=== PATIENT | male | born 1950 | race Hispanic/Latino ===

== ENCOUNTER 2019-11-27 19:17 | Inpatient (IN) | payer OTHER ==
[~2019-11-27] VITALS: Ht 182.9 cm; Wt 86.1 kg
[2019-11-27] MEDS: SODIUM CHLORIDE 0.9% 1000ML 1,000 ML IV SCH (05:22)
[2019-11-27] MEDS ORDERED: ACETAMINOPHEN 325 MG TAB ONE (19:30)
[2019-11-27 19:58] LABS: APPEARANCE,URINE Clear (CLEAR); BILIRUBIN,URINE Negative (NEGATIVE); COLOR,URINE Dark Yellow (YELLOW); GLUCOSE, URINE (UA) Negative (NEGATIVE); KETONES,URINE Trace mg/dL (NEGATIVE); LEUKOCYTE ESTERASE ,URINE Negative (NEGATIVE); NITRATE,URINE Negative (NEGATIVE); OCCULT BLOOD,URINE Nonhemolyzed Trace (NEGATIVE); PROTEIN,URINE Trace mg/dL (NEGATIVE)
[2019-11-27 20:11] LABS: BASOPHILS % (AUTO) 0.2 % (0.0-5.0); HEMATOCRIT 33.2 % (42-54); LYMPHOCYTES % (AUTO) 5.1 % (21.0-51.0); MEAN CORPUSCULAR HEMOGLOBIN 25.9 pg (27.0-33.0); MEAN CORPUSCULAR HGB CONC 31.9 g/dL (32.0-36.0); MONOCYTES % (AUTO) 6.1 % (3.0-13.0); NEUTROPHILS % (AUTO) 88.1 % (40.0-77.0); PLATELET COUNT (AUTO) 365 K/uL (130-400); RED CELL DISTRIBUTION WIDTH 13.7 % (11.0-15.5)
[2019-11-27 20:27] LABS: CREATININE 1.1 mg/dL (0.5-1.5); POTASSIUM 4.2 mmol/L (3.5-5.1)
[2019-11-27 20:33] LABS: BILIRUBIN,TOTAL 1.1 mg/dL (0.2-1.0); TOTAL PROTEIN, SERUM 7.1 g/dL (6.0-8.3)
[2019-11-27] MEDS ORDERED: IOHEXOL-350 75 ML VIAL IV ONE (21:23)
[2019-11-27 21:25] LABS: BACTERIA,URINE Rare /HPF (None Seen); RBC,URINE 0-1 /HPF (0-1); SQUAMOUS EPITHELIAL CELL,UR None Seen /HPF (0-2); WBC,URINE 0-1 /HPF (0-1)
[2019-11-27] MEDS ORDERED: ZOSYN 3.375GM+NS 50ML 50 ML IV ONE (22:41)
[2019-11-27] MEDS ORDERED: VANCOMYCIN 1GM+NS 250ML 250 ML IV ONE (22:41)
[2019-11-27] MEDS ORDERED: ONDANSETRON HCL 4 MG/2 ML VIAL IV PRN (23:30)
[2019-11-27] MEDS ORDERED: VANCOMYCIN PROTOCOL PER PHARMACY IV SCH (23:30)
[2019-11-27] MEDS ORDERED: ACETAMINOPHEN 325 MG TAB PO PRN ×2 (23:30)
[2019-11-27] MEDS ORDERED: MORPHINE SULFATE 2 MG/ML 1ML SYG IV PRN (23:30)
[2019-11-27] MEDS ORDERED: LACTULOSE 20 GM/30 ML UDCUP PO PRN (23:30)
--- NOTE | 2019-11-28 00:30 | NUR ---
ADMISSION PT ADMITTED FROM ER INTO ROOM 302. AWAKE, ALERT AND VERBALLY RESPONSIVE. NO C/O PAIN OR DISCOMFORT AT THIS TIME. LOYA CATHETER OBSERVED DRAINING YELLOW URINE. PT ORIENTED TO ROOM, HIMANSHU TALBERT WITHIN REACH, BED IN LOWEST POSITION. Addendum: 11/28/19 at 0124 by ALVA MUSA RN Amended: Links added.
[2019-11-28 00:35] VITALS: BP 140/73
[2019-11-28 04:08] VITALS: BP 133/73
[2019-11-28 05:09] LABS: BASOPHILS % (AUTO) 0.3 % (0.0-5.0); EOSINOPHILS % (AUTO) 0.3 % (0.0-8.0); HEMATOCRIT 31.4 % (42-54); LYMPHOCYTES % (AUTO) 11.1 % (21.0-51.0); MEAN CORPUSCULAR HEMOGLOBIN 26.2 pg (27.0-33.0); MEAN CORPUSCULAR HGB CONC 31.8 g/dL (32.0-36.0); MEAN CORPUSCULAR VOLUME 82.2 fL (79-99); MONOCYTES % (AUTO) 6.5 % (3.0-13.0); NEUTROPHILS % (AUTO) 81.3 % (40.0-77.0); PLATELET COUNT (AUTO) 321 K/uL (130-400); RED BLOOD CELL COUNT(AUTO) 3.82 MIL/uL (4.50-6.20); RED CELL DISTRIBUTION WIDTH 13.9 % (11.0-15.5); WHITE BLOOD COUNT (AUTO) 15.3 K/uL (4.8-10.8)
[2019-11-28 05:25] LABS: CREATININE 0.9 mg/dL (0.5-1.5); POTASSIUM 3.9 mmol/L (3.5-5.1)
[2019-11-28] MEDS: ZOSYN 3.375GM+NS 50ML 50 ML IV SCH ×3 (06:37→21:45)
[2019-11-28 07:30] VITALS: BP 129/70
[2019-11-28 09:24] LABS: ALBUMIN 2.5 g/dL (3.5-5.0); BILIRUBIN,DIRECT 0.6 mg/dL (0.0-0.3); BILIRUBIN,TOTAL 1.4 mg/dL (0.2-1.0)
[2019-11-28] MEDS: SODIUM CHLORIDE 0.9% 1000ML 1,000 ML IV SCH ×2 (10:35→19:41)
[2019-11-28] MEDS: ENOXAPARIN SODIUM 40 MG/0.4 ML SYRINGE SQ SCH (10:35)
[2019-11-28] MEDS: FAMOTIDINE/PF 20 MG/2 ML VIAL IV SCH ×2 (10:35→21:42)
[2019-11-28 10:53] LABS: TOTAL PROTEIN, SERUM 6.1 g/dL (6.0-8.3)
[2019-11-28 11:00] VITALS: BP 136/70
[2019-11-28] MEDS ORDERED: COMPOUND IV REFRIGERATED 1 EACH IVSOLN MISC PRN (11:45)
[2019-11-28] MEDS: VANCOMYCIN 1.25 GM in SODIUM CHLORIDE 0.9% 250 ML IV SCH ×2 (12:13→23:14)
[2019-11-28 16:00] VITALS: BP 132/64
--- NOTE | 2019-11-28 16:43 | NUR ---
CM NOTE/IA MEET WITH PATIENT IN ROOM. PER PATIENT, IS INDEPENDENT WITH ADLS, LIVES WITH SPOUSE, NO DME IN USE, NO PROVIDER OR HOME HEALTH AND FEELS SAFE TO RETURN HOME ONCE DISCHARGED FROM HOSPITAL. Addendum: 11/28/19 at 1644 by MATEUSZ ZHAO RN CM Amended: Links added.
[2019-11-28 20:12] VITALS: BP 135/65
[2019-11-29] VITALS (8 sets, daily range): BP systolic 116–157; BP diastolic 62–82
[2019-11-29] MEDS: SODIUM CHLORIDE 0.9% 1000ML 1,000 ML IV SCH ×2 (04:34→20:17)
[2019-11-29] MEDS: ZOSYN 3.375GM+NS 50ML 50 ML IV SCH ×3 (05:16→23:03)
[2019-11-29 05:52] LABS: BASOPHILS % (AUTO) 0.7 % (0.0-5.0); EOSINOPHILS % (AUTO) 2.2 % (0.0-8.0); HEMATOCRIT 31.1 % (42-54); LYMPHOCYTES % (AUTO) 13.7 % (21.0-51.0); MEAN CORPUSCULAR HEMOGLOBIN 26.3 pg (27.0-33.0); MEAN CORPUSCULAR HGB CONC 29.9 g/dL (32.0-36.0); MEAN CORPUSCULAR VOLUME 87.9 fL (79-99); MONOCYTES % (AUTO) 7.5 % (3.0-13.0); NEUTROPHILS % (AUTO) 75.5 % (40.0-77.0); PLATELET COUNT (AUTO) 280 K/uL (130-400); RED BLOOD CELL COUNT(AUTO) 3.54 MIL/uL (4.50-6.20); WHITE BLOOD COUNT (AUTO) 10.3 K/uL (4.8-10.8)
[2019-11-29 06:00] LABS: INR 1.19 (0.85-1.15); PARTIAL THROMBOPLASTIN TIME 24.8 SEC (26.3-35.5); PROTHROMBIN TIME 12.8 SEC (9.6-11.6)
[2019-11-29 06:05] LABS: CREATININE 1.2 mg/dL (0.5-1.5); POTASSIUM 3.3 mmol/L (3.5-5.1)
[2019-11-29] MEDS: POTASSIUM CHLORIDE 20MEQ/100ML 100 ML IV PRN (08:10)
[2019-11-29] MEDS: LIDOCAINE HCL-MPF 1% 2ML VIAL IV PRN (08:10)
[2019-11-29] MEDS: ENOXAPARIN SODIUM 40 MG/0.4 ML SYRINGE SQ SCH (09:00)
[2019-11-29] MEDS: FAMOTIDINE/PF 20 MG/2 ML VIAL IV SCH ×2 (09:39→20:16)
--- NOTE | 2019-11-29 11:00 | NUR ---
discussed case with primary RN discussed case with primary RN Jj, for poss IR drain today CHART REVIEWED, WILL ANTICIPATE MAY NEED HH OR AFTERCARE FOLLOW UP FOR IV ABX OR HH Addendum: 11/29/19 at 1112 by LEATHA CAMPBELL RN CM Amended: Links added.
--- NOTE | 2019-11-29 12:59 | NUR ---
U/S GD DRAINAGE CATHETER PLACEMENT PROCEDURE PERFORMED BY DR Xiao RODRÍGUEZ. PUNCTURE SITE LUQ BY STAPLE LINE. PATIENT TOLERATED PROCEDURE WELL. 8FR PIGTAIL CATHETER PLACED TO ABD WALL FLUID COLLECTION AND CONNECTED TO DRAINAGE BAG. CATHETER SUTURED IN PLACE AND SECURED WITH STAY-FIX DRESSING. SPECIMEN COLLECTED AND SENT TO LAB. END OF PROCEDURE AT 1245. REPORT GIVEN TO Brandon DUTTON RN AND PATIENT TRANSPORTED TO CT SCAN FOR ABD STUDY AND THEN TO [facility]-. AAO X3 WITH NO C/O PAIN.
[2019-11-29] MEDS: VANCOMYCIN 1.25 GM in SODIUM CHLORIDE 0.9% 250 ML IV SCH (13:53)
--- NOTE | 2019-11-29 14:17 | NUR ---
LOVENOX HELD DUE TO INVASIVE PROCEDURE.
[2019-11-29] MEDS: TAMSULOSIN HCL 0.4 MG CAP.ER.24H PO SCH (20:16)
[2019-11-30] MEDS: VANCOMYCIN 1.25 GM in SODIUM CHLORIDE 0.9% 250 ML IV SCH ×3 (00:37→23:51)
[2019-11-30] MEDS: SODIUM CHLORIDE 0.9% 1000ML 1,000 ML IV SCH (01:21)
[2019-11-30 03:57] VITALS: BP 144/74
--- NOTE | 2019-11-30 05:35 | NUR ---
LOYA D/C LOYA WAS DISCONTINUED AT THIS TIME, URINE OUTPUT WAS 1900ML, DUE TO VOID BY 1335.
[2019-11-30 05:59] LABS: BASOPHILS % (AUTO) 0.6 % (0.0-5.0); EOSINOPHILS % (AUTO) 4.2 % (0.0-8.0); HEMATOCRIT 30.1 % (42-54); MEAN CORPUSCULAR HEMOGLOBIN 25.4 pg (27.0-33.0); MEAN CORPUSCULAR HGB CONC 31.2 g/dL (32.0-36.0); MEAN CORPUSCULAR VOLUME 81.4 fL (79-99); MONOCYTES % (AUTO) 8.2 % (3.0-13.0); NEUTROPHILS % (AUTO) 65.4 % (40.0-77.0); PLATELET COUNT (AUTO) 301 K/uL (130-400); RED CELL DISTRIBUTION WIDTH 13.7 % (11.0-15.5)
[2019-11-30] MEDS: ZOSYN 3.375GM+NS 50ML 50 ML IV SCH ×3 (06:03→23:50)
[2019-11-30 06:11] LABS: CREATININE 1.2 mg/dL (0.5-1.5)
--- NOTE | 2019-11-30 06:20 | NUR ---
FIRST VOID PATIENT S/P LOYA REMOVAL. PATIENT VOIDED AT THIS TIME.
[2019-11-30 07:56] VITALS: BP 109/63
[2019-11-30] MEDS: TAMSULOSIN HCL 0.4 MG CAP.ER.24H PO SCH (09:10)
[2019-11-30] MEDS: FAMOTIDINE/PF 20 MG/2 ML VIAL IV SCH ×2 (09:13→20:31)
[2019-11-30] MEDS: ENOXAPARIN SODIUM 40 MG/0.4 ML SYRINGE SQ SCH (09:13)
[2019-11-30 11:37] VITALS: BP 110/68
--- NOTE | 2019-11-30 13:22 | NUR ---
DR. Juarez AT BEDSIDE,, PLAN OF CARE DISCUSSED WITH PATIENT. WIATING ON CULTURES- ANTICIPATE AIU OR PO MEDS AND HOME. Addendum: 11/30/19 at 1324 by LEATHA CAMPBELL RN CM Amended: Links added.
[2019-11-30 16:00] VITALS: BP 111/64
[2019-11-30 20:00] VITALS: BP 129/68
[2019-11-30 23:42] VITALS: BP 133/79
[2019-11-30] MEDS ORDERED: SODIUM CHLORIDE 0.9% 250 ML IV ONE (23:53)
[2019-12-01 03:47] VITALS: BP 146/74
[2019-12-01 05:27] LABS: BASOPHILS % (AUTO) 0.7 % (0.0-5.0); EOSINOPHILS % (AUTO) 4.2 % (0.0-8.0); HEMATOCRIT 30.6 % (42-54); LYMPHOCYTES % (AUTO) 17.9 % (21.0-51.0); MEAN CORPUSCULAR HEMOGLOBIN 25.4 pg (27.0-33.0); MEAN CORPUSCULAR HGB CONC 31.4 g/dL (32.0-36.0); MONOCYTES % (AUTO) 9.5 % (3.0-13.0); PLATELET COUNT (AUTO) 312 K/uL (130-400); RED BLOOD CELL COUNT(AUTO) 3.78 MIL/uL (4.50-6.20); RED CELL DISTRIBUTION WIDTH 13.8 % (11.0-15.5); WHITE BLOOD COUNT (AUTO) 8.4 K/uL (4.8-10.8)
[2019-12-01 05:45] LABS: POTASSIUM 3.4 mmol/L (3.5-5.1)
[2019-12-01] MEDS: ZOSYN 3.375GM+NS 50ML 50 ML IV SCH ×3 (06:20→22:27)
[2019-12-01] MEDS: FAMOTIDINE/PF 20 MG/2 ML VIAL IV SCH ×2 (08:53→20:18)
[2019-12-01] MEDS: TAMSULOSIN HCL 0.4 MG CAP.ER.24H PO SCH (08:54)
[2019-12-01] MEDS: ENOXAPARIN SODIUM 40 MG/0.4 ML SYRINGE SQ SCH (08:55)
[2019-12-01 09:11] VITALS: BP 151/69
[2019-12-01] MEDS: POTASSIUM CHLORIDE 20MEQ/100ML 100 ML IV PRN (09:52)
[2019-12-01] MEDS: LIDOCAINE HCL-MPF 1% 2ML VIAL IV PRN (09:55)
[2019-12-01] MEDS: VANCOMYCIN 1.25 GM in SODIUM CHLORIDE 0.9% 250 ML IV SCH (11:00)
[2019-12-01 11:46] VITALS: BP 123/68
--- NOTE | 2019-12-01 14:30 | NUR ---
IR SPOKE WITH ALLAN IR WILL REMOVE LT. ACCORDION FROM LLQ IF IT'S LESS THEN 10CC, PLEASE TAKE INTO CONSIDERATION THE 10CC NS WHEN MEASURING.
--- NOTE | 2019-12-01 14:35 | NUR ---
LT ACCORDION FLUSHED ACCORDION WITH 10CC NS.
[2019-12-01 20:00] VITALS: BP 124/61
[2019-12-01 23:49] VITALS: BP 144/79
[2019-12-02 04:00] VITALS: BP 143/69
[2019-12-02 05:30] LABS: BASOPHILS % (AUTO) 0.5 % (0.0-5.0); EOSINOPHILS % (AUTO) 4.7 % (0.0-8.0); HEMATOCRIT 30.7 % (42-54); LYMPHOCYTES % (AUTO) 21.3 % (21.0-51.0); MEAN CORPUSCULAR HEMOGLOBIN 25.8 pg (27.0-33.0); MEAN CORPUSCULAR HGB CONC 31.3 g/dL (32.0-36.0); MEAN CORPUSCULAR VOLUME 82.5 fL (79-99); MONOCYTES % (AUTO) 9.9 % (3.0-13.0); NEUTROPHILS % (AUTO) 63.1 % (40.0-77.0); PLATELET COUNT (AUTO) 314 K/uL (130-400); RED BLOOD CELL COUNT(AUTO) 3.72 MIL/uL (4.50-6.20); RED CELL DISTRIBUTION WIDTH 14.1 % (11.0-15.5); WHITE BLOOD COUNT (AUTO) 7.3 K/uL (4.8-10.8)
[2019-12-02] MEDS: ZOSYN 3.375GM+NS 50ML 50 ML IV SCH ×2 (05:38→13:38)
[2019-12-02 05:50] LABS: CREATININE 2.1 mg/dL (0.5-1.5); POTASSIUM 3.6 mmol/L (3.5-5.1)
[2019-12-02 08:00] VITALS: BP 150/81
--- NOTE | 2019-12-02 08:35 | NUR ---
PROCEDURE PATIENT SCHEDULED FOR DRAINAGE CATHETER REMOVAL. NO OUTPUT OVER NIGHT AND OK'D FOR REMOVAL. CATHETER REMOVED AT BEDSIDE WITH STERILE TECHNIQUE. PATIENT TOLERATED PROCEDURE WELL. REPORT GIVEN TO Karla FERRERA RN.
[2019-12-02] MEDS: FAMOTIDINE/PF 20 MG/2 ML VIAL IV SCH (11:14)
[2019-12-02] MEDS: TAMSULOSIN HCL 0.4 MG CAP.ER.24H PO SCH (11:14)
[2019-12-02] MEDS: ENOXAPARIN SODIUM 40 MG/0.4 ML SYRINGE SQ SCH (11:14)
[2019-12-02 12:00] VITALS: BP 133/67
== END 2019-12-02 18:00 | disposition home or self-care (01) | DRG 871 ==
LOC: EDH 19:17 → EDHIP 23:21 → 3AH 11-28 00:15
PROVIDERS: ADMIT Hospitalist; ATTEND Hospitalist
PROC: 0D9W30Z Drainage of Peritoneum with Drainage Device, Percutaneous Approach (ICD-10-PCS; principal; 2019-11-29)
DX: A41.50 Gram-negative sepsis, unspecified (principal); K65.1 Peritoneal abscess; L02.211 Cutaneous abscess of abdominal wall; R18.8 Other ascites; K83.09 Other cholangitis; R33.9 Retention of urine, unspecified; E66.9 Obesity, unspecified; K59.00 Constipation, unspecified; M47.815 Spondylosis without myelopathy or radiculopathy, thoracolumbar region; I10 Essential (primary) hypertension; R53.81 Other malaise; B95.2 Enterococcus as the cause of diseases classified elsewhere; B96.20 Unspecified Escherichia coli [E. coli] as the cause of diseases classified elsewhere; Z68.25 Body mass index [BMI] 25.0-25.9, adult; Z90.49 Acquired absence of other specified parts of digestive tract
CPT/HCPCS: 10005; 36415; 71045; 74150; 74176; 74177; 76942; 80048; 80053; 80076; 80202; 81001; 83605; 83690; 84145; 85025; 85610; 85730; 87040; 87070; 87071; 87076; 87077; 87088; 87186; 87205; C1729; G0378; J1650; J2543; J3370; J3480; J3490; J7050; Q9967